=== PATIENT | male | born 1945 | race Caucasian/White ===

== ENCOUNTER → 2016-09-03 | Outpatient (CLI) | payer OTHER | LOC: FIMAGING 10:43 | PROVIDERS: ATTEND Orthopaedic Surgery | DX: M17.11 Unilateral primary osteoarthritis, right knee (principal) ==

== ENCOUNTER 2016-09-16 07:15 | Inpatient (IN) | payer OTHER ==
[~2016-09-16 07:15] MED LIST: CEFAZOLIN 2 GM/DEXTR 100 ML IV ONE; CHLORHEXIDINE GLUC HIBICLENS 118 ML BTL TP ONE; DEXAMETHASONE 4 MG/ML VIAL IVP ONE; FAMOTIDINE 20 MG TAB PO ONE; ROPI/epiNEPH/KETOROLAC JOINT COCKTAIL IU ONE; SKIN ADHESIVE (DERMABOND) 1 EACH TP ONE; TRANEXAMIC ACID 3,000 MG in NS 50 ML IRR ONE; TRANEXAMIC ACID 3,000 MG/50 ML BAG IRR ONE; VANCOMYCIN 1 GM VIAL IV ONE
[2016-09-16] MEDS ORDERED: DEXAMETHASONE 4 MG/ML VIAL ONE ×2 (09:47→12:19)
[2016-09-16] MEDS ORDERED: CEFAZOLIN 2 GM/DEXTROSE/100 ML BAG IV ONE (09:47)
[2016-09-16] MEDS ORDERED: FAMOTIDINE 20 MG TAB ONE (09:47)
[2016-09-16] MEDS ORDERED: ACETAMINOPHEN 325 MG TAB ONE (09:47)
[2016-09-16] MEDS ORDERED: LR 1,000 ML IV ONE (11:07)
[2016-09-16] MEDS ORDERED: LIDOCAINE 1% 5 ML SDV ID PRN (11:07)
[2016-09-16] MEDS ORDERED: MIDAZOLAM 2 MG/2 ML VIAL ONE (12:16)
[2016-09-16] MEDS ORDERED: fentaNYL 100 MCG/2 ML INJ ONE (12:17)
[2016-09-16] MEDS ORDERED: POLYETHYLENE GLYCOL 3350 17 GM PKT PO PRN (12:33)
[2016-09-16] MEDS ORDERED: diphenhydrAMINE 25 MG CAP PO PRN (12:33)
[2016-09-16] MEDS ORDERED: ONDANSETRON 4 MG/2 ML VIAL IVP PRN (12:33)
[2016-09-16] MEDS ORDERED: BISACODYL 10 MG SUPP PR PRN (12:33)
[2016-09-16] MEDS ORDERED: LACTULOSE 20 GM/30 ML UDCUP PO PRN (12:33)
[2016-09-16] MEDS ORDERED: TEMAZEPAM 15 MG CAP PO PRN (12:33)
[2016-09-16] MEDS ORDERED: CYCLOBENZAPRINE 10 MG TAB PO PRN (12:33)
[2016-09-16] MEDS ORDERED: MAGNESIUM HYDROXIDE 30 ML UDCUP PO PRN (12:33)
[2016-09-16] MEDS ORDERED: DIPHENOXYLATE/ATROPINE LOMOTIL 1 TAB PO PRN (12:33)
[2016-09-16] MEDS ORDERED: PHARMACY PAIN CONSULT 1 EA MISC PRN (12:33)
[2016-09-16] MEDS ORDERED: ONDANSETRON DISINTEGRATING 4 MG TAB PO PRN (12:33)
[2016-09-16] MEDS ORDERED: METOCLOPRAMIDE 10 MG/2 ML VIAL IVP PRN (12:33)
[2016-09-16] MEDS ORDERED: PROMETHAZINE HCL 25 MG/ML INJ IVP PRN (12:33)
[2016-09-16] MEDS ORDERED: PROMETHAZINE HCL 25 MG SUPPR PR PRN (12:33)
[2016-09-16] MEDS ORDERED: LIDOCAINE 2% 5 ML SDV ONE (12:36)
[2016-09-16] MEDS ORDERED: ROPIVACAINE HCL 150 MG/30 ML INJ ONE (13:43)
--- NOTE | 2016-09-16 13:54 | POSTOPPROG ---
Post Op Note Date of Operation: 09/16/16 Surgeon: Zakiya Bright Public Speaker: Tory Bright PAc Anesthesiologist: Justyn Anesthesia: Spinal Pre-op Diagnosis: R knee DJD Post-op Diagnosis: same Indication: pain Procedure: R TKA wt computer mc and robotic assist Findings: DJD knee Inf/Abcess present in the surg proc area at time of surgery?: No EBL: 50-100
[2016-09-16] MEDS ORDERED: ceFAZolin 2 GM/DEXTROSE 100 ML IV SCH (14:00)
[2016-09-16] MEDS: oxyCODONE IR 5 MG TAB PO PRN ×3 (15:57→22:38)
[2016-09-16] MEDS: LR 1,000 ML IV SCH (15:57)
--- NOTE | 2016-09-16 19:13 | GOP ---
DATE OF OPERATION: 09/16/2016 SURGEON: Cristo Bright MD RESIDENT CARE COORDINATOR: JUAN CARLOS Beard. ANESTHESIA: Spinal. PREOPERATIVE DIAGNOSIS: Right knee osteoarthritis. POSTOPERATIVE DIAGNOSIS: Right knee osteoarthritis. PROCEDURE: Right total knee arthroplasty. FINDINGS/PATHOLOGY: Severe medial and patellofemoral osteoarthritis. ESTIMATED BLOOD LOSS: 30 cc. INDICATIONS: This is a 70-year-old male with severe and progressive pain and deformity of the right knee unresponsive to conservative care. Risks and benefits of the surgical intervention were explained in detail. DESCRIPTION OF PROCEDURE: The patient was brought to the operative room and placed on the table in the supine position. Spinal anesthesia was induced without difficulty. A pneumatic tourniquet was applied about the right proximal thigh, and the leg was prepped and draped in a sterile fashion. The leg woodard was applied. After exsanguination by elevation the tourniquet was inflated to 250 mm of mercury. Incision was made anterior medial from the tibial tuberosity to a point 2 cm proximal to the superior pole of the patella. Medial parapatellar arthrotomy was carried out from the superior pole of the patella and posteriorly in line with the fibers of the Type II VMO. The medial collateral ligament was elevated and the infrapatellar fat pad was resected. The patella was everted and the articular surface was excised. A 35 mm patellar button was placed. The distal femoral guide hole was drilled and the 6 degree alignment maria luz was placed. A 10 mm distal femoral cut was made without difficulty. Attention was turned to the tibia and a standard 9 mm cut based on the lateral tibial condyle was performed. The tibial articular surface was excised without difficulty. Attention was turned back to the femur and a size 5 Triathlon femoral cutting block was positioned. Anterior, posterior, and chamfer cuts were made, followed by the intercondylar box cut. The knee was extended and the remnants of the medial and lateral meniscus were excised. The posterior capsule was injected with ropivacaine, epinephrine and Toradol. A size 6 MIS mini-keel tibial tray was positioned. Trial reduction was then carried out. There was excellent range of motion, alignment, and stability using the 9 mm polyethylene. All trials were then removed. The joint was thoroughly irrigated and carefully dried. Two packages of cement and 2 grams of vancomycin were mixed in the vacuum mixer and placed on the fixation surfaces of all surfaces of the components. The components were implanted and all excess cement was thoroughly removed. The permanent 9 mm polyethylene X3 was placed without difficulty. The tourniquet was deflated and all bleeders were coagulated. The wound was thoroughly irrigated and closed using interrupted sutures of 2-0 Vicryl for the joint capsule. The subcu was closed with 3-0 Vicryl and the skin with 4-0 Monocryl. Dermabond and Steri-Strips were applied followed by a compressive dressing. The patient was then moved from the operating room to the recovery room in good condition, having tolerated the procedure well. /[id number]/MODL MTDD
[2016-09-16] MEDS: ceFAZolin 2 GM in D5W 100 ML IV SCH (20:14)
[2016-09-16] MEDS: URSODIOL 300 MG CAP PO SCH (20:15)
[2016-09-16] MEDS: ASPIRIN 325 MG TAB PO SCH (20:15)
[2016-09-16] MEDS: PREGABALIN 100 MG CAP PO SCH (20:16)
[2016-09-16] MEDS: CYCLOSPORINE, MODIFIED 25 MG CAP (NEORAL) PO SCH (20:17)
[2016-09-16] MEDS: SENNOSIDES/DOCUSATE SODIUM TAB PO SCH (20:17)
[2016-09-16] MEDS: MYCOPHENOLATE MOFETIL 250 MG CAP PO SCH (20:18)
[2016-09-16] MEDS: FAMOTIDINE 20 MG TAB PO SCH (20:18)
[2016-09-16] MEDS ORDERED: ATORVASTATIN CALCIUM 40 MG TAB PO SCH (21:00)
[2016-09-16] MEDS ORDERED: traZODone 100 MG TAB PO SCH (21:00)
[2016-09-17] MEDS: oxyCODONE IR 5 MG TAB PO PRN ×3 (02:33→12:28)
[2016-09-17] MEDS: LR 1,000 ML IV SCH (02:36)
[2016-09-17] MEDS: ceFAZolin 2 GM in D5W 100 ML IV SCH (04:01)
[2016-09-17 05:30] LABS: HEMATOCRIT 27.9 % (40.0-51.0); HEMOGLOBIN 9.5 g/dL (13.7-17.5)
[2016-09-17 05:48] LABS: ANION GAP 10 mEq/L (8-16); CALCIUM 7.5 mg/dL (8.5-10.4); CARBON DIOXIDE 16 mEq/l (22-31); CHLORIDE 103 mEq/L (97-110); CREATININE 0.6 mg/dL (0.7-1.3); GLOMERULAR FILTRATION RATE > 60; GLUCOSE 97 mg/dL (70-100); POTASSIUM 3.9 mEq/L (3.5-5.2); SODIUM 129 mEq/L (134-144)
[2016-09-17 07:48] VITALS: BP 117/75; RESP 16; TEMP 97.4; O2SAT 94
[2016-09-17] MEDS: FAMOTIDINE 20 MG TAB PO SCH (08:30)
[2016-09-17] MEDS: URSODIOL 300 MG CAP PO SCH (08:31)
[2016-09-17] MEDS: PREGABALIN 100 MG CAP PO SCH (08:31)
[2016-09-17] MEDS: SENNOSIDES/DOCUSATE SODIUM TAB PO SCH (08:32)
[2016-09-17] MEDS: ASPIRIN 325 MG TAB PO SCH (08:32)
[2016-09-17] MEDS: MYCOPHENOLATE MOFETIL 250 MG CAP PO SCH (08:34)
[2016-09-17] MEDS: CYCLOSPORINE, MODIFIED 25 MG CAP (NEORAL) PO SCH (08:35)
[2016-09-17 08:37] VITALS: PULSE 54
[2016-09-17] MEDS ORDERED: LISINOPRIL 20 MG TAB PO SCH (09:00)
[2016-09-17] MEDS ORDERED: CETIRIZINE 10 MG TAB PO SCH (09:00)
[2016-09-17] MEDS ORDERED: ATENOLOL 50 MG TAB PO SCH (09:00)
[2016-09-17] MEDS ORDERED: PANTOPRAZOLE SODIUM 40 MG TAB PO SCH (09:00)
--- NOTE | 2016-09-17 09:31 | SOAPPROG ---
SOAP Progress Note Assessment/Plan: Assessment: Patient is doing well POD 1 s/p R TKA 1.Pain management: pain is well controlled on oral pain meds 2.Anemia: level is expected initially postop. Asymptomatic. Cont to monitor for symptoms 3.VTE ppx: recommend aspirin 325mg daily. Cont JANNET ward and SCD 4. d/c planning: d/c to home today pending release from PT. 5. Bradycardia: Heart rate documented in the 50s, one in the high 40s. at rest this morning HR 55. Plan: 09/17/16 09:30 Subjective: Roel is doing well today, denies SOB, chest pain and N/V. Objective: Vital Signs Temp Pulse Resp BP Pulse Ox 36.3 C 54 L 16 117/75 94 09/17/16 07:46 09/17/16 08:36 09/17/16 07:46 09/17/16 08:36 09/17/16 07:46 Laboratory Results 09/17/16 04:52 09/17/16 04:52 09/16/16 09/17/16 09/18/16 05:59 05:59 05:59 Intake Total 4190 Output Total 2129 Balance 2059 RLE: incision dressing is clean and dry, NVI, +pf/df ICD10 Worksheet Patient Problems: Problems Problem Status Onset Primary localized osteoarthritis of right knee Acute
--- NOTE | 2016-09-17 10:15 | GDS ---
ADMISSION DIAGNOSIS: Right knee osteoarthritis. DISCHARGE DIAGNOSIS: Right knee osteoarthritis. PROCEDURE: Right total knee arthroplasty with robot-assisted. VTE PROPHYLAXIS: Has been recommended 3 weeks daily. BRIEF DESCRIPTION OF HOSPITAL STAY: Patient was admitted for an elective joint arthroplasty. The p atient tolerated the procedure well and has passed physical therapy. The patient was given appropri ate antibiotic prophylaxis and venous thromboembolism prophylaxis. The patient's pain was well cont rolled on oral pain medication, patient was holding down food, and had urinated. Decision was made to discharge the patient. The patient was given post-operative prescriptions pre-operatively. PLAN: To follow up with Dr. Bright at [facility] in 2 to 3 weeks. /[id number]/MODL
== END 2016-09-17 13:03 | disposition home or self-care (01) | DRG 470 ==
LOC: F3E 09:34 → F3N 15:44
PROVIDERS: ADMIT Orthopaedic Surgery; ATTEND Orthopaedic Surgery
PROC: 0SRC0J9 Replacement of Right Knee Joint with Synthetic Substitute, Cemented, Open Approach (ICD-10-PCS; principal; 2016-09-16 12:22)
DX: M17.11 Unilateral primary osteoarthritis, right knee (principal); I10 Essential (primary) hypertension; E78.5 Hyperlipidemia, unspecified; K21.9 Gastro-esophageal reflux disease without esophagitis; Z94.4 Liver transplant status; M10.9 Gout, unspecified; G62.9 Polyneuropathy, unspecified
CPT/HCPCS: 97116-GP; 97161-GP; 97165-GO; 97535-GO; C1713; J0171; J0690; J1100; J1885; J2250; J2795; J3010; J3370; J7515